=== PATIENT | male | born 1985 | race African-American/Black ===

== ENCOUNTER 2025-01-24 12:41 | Emergency (ER) | payer MEDICAID, OTHER ==
[~2025-01-24] VITALS: Ht 175.3 cm; Wt 81.2 kg
--- NOTE | 2025-01-24 13:22 | ED.PDOC ---
History of Present Illness HPI Comments 40 year old male presents to the ED with a chief complaint of back pain onset 2 days. Patient states he twisted to get out of a car and shortly after began experiencing LT sided low back pain. Patient noticed pain worsen with movement, rates pain 10/10 when walking and 8/10 when sitting still. Denies any PMHx as well as trauma, fall, injury, chest pain, shortness of breath, nausea, vomiting, diarrhea, dysuria, hematuria. No other symptoms or modifying factors present at this time. Chief Complaint: Back Pain Time Seen by MD: 13:10 Primary Care Provider: unknown Reviewed Notes: Medications, Allergies Allergies: Coded Allergies: NO KNOWN ALLERGIES (Unverified , 01/24/25) Information Source: Patient Mode of Arrival: Ambulatory Severity: Mild Timing: Days Duration: Since onset Prehospital treatment: None Past Medical History PAST MEDICAL HISTORY: Denies Surgical History: Denies all surgeries Family History Family History: Reviewed,noncontributory to illness, No family hx of Cancer, No family hx of DM, No family hx of Heart adonay, No family hx of HTN, No family hx ofKidney adonay, No family hx of Liver adonay, No family hx of Lung adonay, No family hx of Stroke Social History Smoker: Cigarettes Alcohol: Denies ETOH Use Drugs: Marijuana Lives In: Assisted Care Constitutional: denies: chills, diaphoresis, fatigue, fever, malaise, sweats, weakness, others EENTM: denies: blurred vision, double vision, ear bleeding, ear discharge, ear drainage, ear pain, ear ringing, eye pain, eye redness, hearing loss, mouth pain, mouth swelling, nasal discharge, nose bleeding, nose congestion, nose pain, photophobia, tearing, throat pain, throat swelling, voice changes, others Respiratory: denies: cough, hemoptysis, orthopnea, SOB at rest, shortness of breath, SOB with excertion, stridor, wheezing, others Cardiovascular: denies: chest pain, dizzy spells, diaphoresis, Dyspnea on exertion, edema, irregular heart beat, left arm pain, lightheadedness, palpitations, PND, syncope, others Gastrointestinal: denies: abdomen distended, abdominal pain, blood streaked bowels, constipated, diarrhea, dysphagia, difficulty swallowing, hematemesis, melena, nausea, poor appetite, poor fluid intake, rectal bleeding, rectal pain, vomiting, others Genitourinary: denies: burning, dysuria, flank pain, frequency, hematuria, incontinence, penile discharge, penile sore, pain, testicle pain, testicle swelling, urgency, others Neurological: denies: dizziness, fainting, headache, left sided numbness, left sided weakness, numbness, paresthesia, pre-existing deficit, right sided numbness, right sided weakness, seizure, speech problems, tingling, tremors, weakness, others Musculoskeletal: reports: back pain; denies: gout, joint pain, joint swelling, muscle pain, muscle stiffness, neck pain, others Integumetry: denies: bruises, change in color, change in hair/nails, dryness, laceration, lesions, lumps, rash, wounds, others Allergic/Immunocompromised: denies: Difficulty Healing, Frequent Infections, Hives, Itching, others Hematologic/Lymphatic: denies: anemia, blood clots, easy bleeding, easy bruising, swollen glands, others Endocrine: denies: excessive hunger, excessive sweating, excessive thirst, excessive urination, flushing, intolerance to cold, intolerance to heat, unexplained weight gain, unexplained weight loss, others Psychiatric: denies: anxiety, bipolar disorder, depression, hopeless, panic disorder, schizophrenia, sleepless, suicidal, others All Other Systems: Reviewed and Negative Physical Exam General Appearance: Moderate Distress, Normal HEENT: Normal ENT Inspection, Pharynx Normal, TMs Normal Neck: Full Range of Motion, Non-Tender, Normal, Normal Inspection Respiratory: Chest Non-Tender, Lungs Clear, No Accessory Muscle Use, No Respiratory Distress, Normal Breath Sounds Cardiovascular: No Edema, No JVD, No Murmur, No Gallop, Normal Peripheral Pulses, Regular Rate/Rhythm Breast Exam: Deferred Gastrointestinal: No Organomegaly, Non Tender, No Pulsatile Mass, Normal Bowel Sounds, Soft Genitalia: Deferred Pelvic: Deferred Rectal: Deferred Extremities: No calf tenderness, Normal capillary refill, Normal inspection, Normal range of motion, Non-tender, No pedal edema Musculoskeletal : Apperance: Normal Neurologic: Alert, bariatric nurse II-XII nml as Tested, No Motor Deficits, Normal Affect, Normal Mood, No Sensory Deficits Cerebellar Function: Normal Reflexes: Normal Skin: Dry, Normal Color, Warm Peripheral Pulses: 3+ Radial (R), 3+ Radial (L) Lymphatic: No Adenopathy Was a procedure done? Was a procedure done?: No Differential Dx Considerations may include: Degeneration X-Ray, Labs, Meds, VS Vital Signs Date Time Temp Pulse Resp B/P (MAP) Pulse Ox O2 Delivery O2 Flow Rate FiO2 01/24/25 13:13 98.7 98 18 161/116 (131) 99 98.7 Patient alert. Complaining of back pain. Blood pressure elevated. Answering questions. Ambulating. Was given clonidine. X-ray of the bag does show degeneration which is old. No acute process. Explained to the patient. Was told to follow up with his primary care physician. Was told to come back if there is any problem. Time of 1ST Reevaluation: 13:40 Reevaluation 1ST: Unchanged Patient Education/Counseling: Diagnosis, Treatment, Prognosis Family Education/Counseling: No Family Present Departure 1 Departure Time of Disposition: 15:21 Impression: Primary Impression: Hypertensive urgency Additional Impression: Degeneration of intervertebral disc Qualified Codes: M51.369 - Other intervertebral disc degeneration, lumbar region without mention of lumbar back pain or lower extremity pain Disposition: 01 HOME / SELF CARE / HOMELESS Condition: Good Discharged With: Self Critical Care Note Critical Care Time?: No Stability Stability form required: No Heart Score Heart Score: Heart Score Response (Comments) Value History N/A 0 EKG N/A 0 Age N/A 0 Risk Factors N/A 0 Troponin N/A 0 Total 0 I personally scribed for KINDRA FABIAN MD ([email or web address]) on 01/24/25 at 13:22. Electronically submitted by Keren Cohen ([email or web address]). KINDRA FABIAN MD January 24, 2025 13:22
--- NOTE | 2025-01-24 14:03 | DVH ---
INDICATION: degen COMPARISON: None TECHNIQUE: Frontal, lateral and oblique views of the lumbar spine were obtained. FINDINGS: The lumbar vertebral alignment is normal. Intervertebral disc space narrowing at L4-L5. No acute fracture, vertebral compression deformity or aggressive osseous lesions. The paravertebral soft tissues are grossly unremarkable. IMPRESSION: 1. No acute fracture. 2. Disc degeneration at L4-L5.
[2025-01-24] MEDS: HYDROcodone-ACET 10/325MG TAB PO ONE (15:43)
[2025-01-24] MEDS: cloNIDine HCL 0.1 MG TAB PO ONE (15:44)
[2025-01-24 15:46] VITALS: BP 190/100; PULSE 84; RESP 18; TEMP 98; O2SAT 95
== END 2025-01-24 15:48 | disposition home or self-care (01) ==
LOC: ER 12:53
DX: I16.0 Hypertensive urgency (principal); M51.360 Other intervertebral disc degeneration, lumbar region with discogenic back pain only; F17.210 Nicotine dependence, cigarettes, uncomplicated; F12.90 Cannabis use, unspecified, uncomplicated
CPT/HCPCS: 72110